=== PATIENT | female | born 1935 | race Caucasian/White ===

== ENCOUNTER 2017-06-03 07:54 | Day surgery (SDC) | payer MEDICARE, OTHER ==
[~2017-06-03] VITALS: Ht 157.5 cm; Wt 69.0 kg
[~2017-06-03 07:54] MED LIST: ASPI81CH; Azor 5-20 MG T1 EACH; CHOL10002; COSOPT PF EYE1 EACH; Coq-10100 MG; DHEA; GLUC500; Hair, Skin & N1 EACH; LEVSOD88; LUMIGAN2.5 ML; ROSU5; YUVAFEM10 MCG
== END 2017-06-03 10:05 | disposition home or self-care (01) ==
LOC: ORSCSDS 07:54
PROVIDERS: Surgery
PROC: 0DBP8ZX Excision of Rectum, Via Natural or Artificial Opening Endoscopic, Diagnostic (ICD-10-PCS; principal; 2017-06-03 09:15)
DX: Z12.11 Encounter for screening for malignant neoplasm of colon (principal); D12.8 Benign neoplasm of rectum; K57.30 Diverticulosis of large intestine without perforation or abscess without bleeding; Z86.010 Personal history of colon polyps; Z80.0 Family history of malignant neoplasm of digestive organs; I10 Essential (primary) hypertension; E03.9 Hypothyroidism, unspecified; E78.5 Hyperlipidemia, unspecified; B15.9 Hepatitis A without hepatic coma; Z79.82 Long term (current) use of aspirin; Z79.899 Other long term (current) drug therapy
CPT/HCPCS: 88305; J2405

== ENCOUNTER 2018-04-08 09:41 | Inpatient (IN) | payer MEDICARE, OTHER ==
[~2018-04-08] VITALS: Ht 157.5 cm; Wt 62.4 kg
[~2018-04-08 09:41] MED LIST changes: -Azor 5-20 MG T1 EACH; +Azor 5-20 MG T1 EACH PO; -CHOL10002; +CHOL10002 PO; -Coq-10100 MG; +Coq-10100 MG PO; -DHEA; +DHEA PO; -LEVSOD88; +LEVSOD88 PO; -ROSU5; +ROSU5 PO
[2018-04-08 10:41] LABS: BASOPHILS ABSOLUTE AUTO 0.01 K/mm3 (0.00-0.23); BASOPHILS PERCENT AUTO 0 % (0-2); EOSINOPHILS ABSOLUTE AUTO 0.02 K/mm3 (0.00-0.68); EOSINOPHILS PERCENT AUTO 0 % (0-6); IMMATURE GRAN ABSOLUTE AUTO 0.01 K/mm3 (0.00-0.10); IMMATURE GRAN PERCENT AUTO 0 % (0-1); LYMPHOCYTES ABSOLUTE AUTO 2.06 K/mm3 (0.84-5.20); LYMPHOCYTES PERCENT AUTO 29 % (21-46); MONOCYTES PERCENT AUTO 10 % (4-13); Mean Corpuscular HGB Conc 29.8 g/dL (31.5-36.5); Mean Corpuscular Volume 77 fL (80-100); Mean Platelet Volume 9.3 fL (9.1-12.4); NEUTROPHILS ABSOLUTE AUTO 4.43 K/mm3 (1.96-9.15); NEUTROPHILS PERCENT AUTO 61 % (41-73); Platelet Count 414 K/mm3 (150-400); RDW Coefficient Variation 19.9 % (11.7-14.2); RDW Standard Deviation 55.4 fL (35.1-46.3); Red Blood Cell Count 2.09 M/mm3 (3.80-5.20); White Blood Cell Count 7.23 K/mm3 (4.00-11.30)
[2018-04-08 10:42] LABS: Hematocrit 16.1 % (33.0-51.0)
[2018-04-08 10:52] LABS: Alanine Aminotransfer (ALT/SGP 20 U/L (12-78); Albumin, Blood 3.4 g/dL (3.4-5.0); Albumin/Globulin Ratio 0.9 (0.8-1.8); Alk Phos 36 U/L (50-136); Anion Gap 7 mmol/L (6-16); Aspartate Aminotrans (AST/SGOT 15 U/L (12-37); Bilirubin, Total 0.2 mg/dL (0.1-1.0); Blood Urea Nitrogen 27 mg/dL (8-24); Bun/Creatinine Ratio 34.3 (12.0-20.0); CO2, Blood 26 mmol/L (21-32); Calcium, Blood 8.2 mg/dL (8.5-10.1); Chloride, Blood 105 mmol/L (98-108); Creatinine, Blood 0.79 mg/dL (0.40-1.00); Globulin, Blood 3.9 g/dL (2.2-4.0); Glomerular Filtration Rate >60 (60-); Glucose, Blood 91 mg/dL (70-99); Potassium, Blood 3.5 mmol/L (3.5-5.5); Sodium, Blood 138 mmol/L (136-145); Total Protein, Blood 7.3 g/dL (6.4-8.2)
[2018-04-08 10:57] LABS: Hemoglobin 4.8 g/dL (11.5-16.0)
[2018-04-08] MEDS ORDERED: DORZOPSO LEFTEYE (11:02)
[2018-04-08 11:06] LABS: Troponin I <0.015 ng/mL (0.000-0.040)
[2018-04-08 13:07] LABS: Source, Urine Clean Catch
[2018-04-08 13:15] LABS: Appearance, Urine Turbid (Clear); Bilirubin, Urine Neg (Neg); Blood, Urine 1+ (Neg); Color, Urine Yellow (P-Yellow); Glucose Qualitative, Urine Neg (Neg); Ketones, Urine 1+ (Neg); Leukocyte Esterase, Urine 1+ (Neg); Nitrite, Urine Neg (Neg); Protein, Urine Neg (Neg); Specific Gravity, Urine 1.015 (1.003-1.022); Urobilinogen, Urine NORM (Normal)
[2018-04-08 13:57] LABS: Red Blood Cells, Urine Not Seen /hpf (0-2); White Blood Cells, Urine 0-2 /hpf (0-5)
[2018-04-08 13:58] LABS: Bacteria Rare /hpf; Squamous Epithelial Cells Rare /hpf (Few)
--- NOTE | 2018-04-08 19:32 | NUR ---
Shift Summary Assumed care of pt at approx 1445. Pt arrived to unit from ED via gurney. VSS. In no apparent sign of distress. Pt has received 1 of 2 units of blood and tolerated well w/out s/sx of transfusion reaction or fluid overload at this time. Pt repositons self. Dr. Murry at bedside this afternoon and plan is to scope pt in AM at approx 0900 so pt is NPO per Dr. Murry. Pt on RA. Lungs clear. No bloody stools since arriving ot the PCU. Pt currently resting in bed with call light within reach. Denies any further questions, complaints or requests at this time. Report given to sia HURD.
[2018-04-08] MEDS ORDERED: CRINONE1.125 GM (19:56)
[2018-04-08] MEDS ORDERED: [UNRECOGNIZED DRUG - MIXTURE] (19:59)
[2018-04-08] MEDS ORDERED: [UNRECOGNIZED DRUG - OTHER] (20:04)
--- NOTE | 2018-04-08 22:09 | NUR ---
ASSUMED CARE OF PATIENT AT APPROXIMATELY 1910 FROM STEFANIA Meadows RN. PATIENT ALERT AND ORIENTED X4. PATIENT REPORTS SHE FEELS BETTER COMPARED TO WHEN SHE WAS ADMITTED; REPORTS SHE DOESNT FEEL WEAK WHEN SHE ABMULATES. SBA TO BATHROOM. ONE UNIT OF BLOOD FINISHING INFUSING SHORTLY AFT SHIFT CHANGE. 2ND UNIT OF BLOOD STARTED; THIS RN STAYING IN ROOM FOR FIRST 15 MINUTES OF TRANSFUSION; NO ADVERSE S/S NOTED. NSR ON TELE; OXYGEN SATURATION ABOVE 90% ON ROOM AIR. PATIENT DENIES PAIN, NUMBNESS, TINGLING, DIZZINESS OR LIGHTHEADEDNESS. NO BM. PATIENT REPORTED NAUSEA; MEDICATED PER EMAR; NO FURTHER COMPLAINTS. PATIENT REPORTS RESTLESS HIPS; REPORTS CHRONIC; REPOSISTION; PATIENT REPORTS HELPED. PATIENT WAS UP TO CHAIR FOR ABOUT THIRTY MINUTES. PATIENT NPO PER DAYSHIFT RN FOR SCOPE IN AM. PATIENT AWARE. IVF INFUSING PER ORDERS. PATIENT CURRENTLY SLEEPING IN BED; CALL LIGHT IN REACH; BED IN LOWEST POSISTION; BED ALARM ON; WILL CONTINUE TO MONITOR AND ASSESS UNTIL END OF SHIFT.
[2018-04-09 01:20] LABS: Hematocrit 19.4 % (33.0-51.0); Hemoglobin 6.3 g/dL (11.5-16.0)
--- NOTE | 2018-04-09 01:55 | NUR ---
CALLED DR. MOISE TO REPORT HEMOGLOBIN OF 6.3; ORDERS RECIEVED.
--- NOTE | 2018-04-09 02:56 | NUR ---
THIS RN STAYED IN THE ROOM WITH PATIENT FOR FIRST 15 MINUTES OF BLOOD TRANSFUSION; NO S/S OF ADVERSE REACTION NOTED. PATIENT CURRENTLY SLEEPING; WILL CONTINUE TO MONITOR AND ASSESS UNTIL END OF SHIFT.
[2018-04-09 06:35] LABS: Hematocrit 25.5 % (33.0-51.0); Hemoglobin 8.4 g/dL (11.5-16.0)
--- NOTE | 2018-04-09 06:50 | NUR ---
SECOND UNIT OF BLOOD COMPLETED. H/H UP TO 8.4/25.5. PATIENT AMBULATED TO BATHROOM; STATES FEELS BETTER. PATIENT HAS BEEN NPO ALL SHIFT; SCD'S APPLIED LAST NIGHT. NO BM. NO ACUTE CHANGES TO REPORT. WILL CONTINUE TO MONITOR AND ASSESS UNTIL END OF SHIFT. PATIENT SLEPT ABOUT SIX HOURS LAST NIGHT.
--- NOTE | 2018-04-09 10:08 | NUR ---
History, Chart, Medications and Allergies reviewed before start of procedure. Lungs clear T/O to Auscultation. Patient confirms NPO status and agrees with scheduled surgery. Pre-Op teaching done. Pt verbalizes understanding.
--- NOTE | 2018-04-09 10:27 | NUR ---
04/09/18 1027 JanineBradlyJayda PATIENT DETERMINED TO BE ASA APPROPRIATE FOR PROPOFOL SEDATION PRIOR TO START OF PROCEDURE BY DR. MONTOYA. 3-LEAD EKG REVIEWED WITH PHYSICIAN PRIOR TO START OF PROCEDURE. PATIENT CONFIRMS NPO STATUS AND AGREES WITH SCHEDULED PROCEDURE. History, Chart, Medications and Allergies reviewed before start of procedure. MONITOR INTACT WITH CONTINUOUS PULSE OXIMETRY AND INTERMITTENT BP. O2 VIA N/C INTACT THROUGHOUT SEDATION/PROCEDURE. O2 VIA N/C INTACT THROUGHOUT SEDATION/PROCEDURE, VIA POM MASK AT 10 L. Bite Block Placed IMMEDIATEL PRESEDATION.
[2018-04-09 13:34] LABS: Hematocrit 22.4 % (33.0-51.0); Hemoglobin 7.3 g/dL (11.5-16.0)
[2018-04-09 18:27] LABS: Hematocrit 21.8 % (33.0-51.0); Hemoglobin 7.1 g/dL (11.5-16.0)
--- NOTE | 2018-04-09 19:09 | NUR ---
Shift Summary Pt has been stable today. Pt had EGD this AM at approx 1000 - results no findings of bleeding. Denies any pain t/o the shift. No BM this shift. Pt walked halls today post procedure and tolerated activity well. H&H decreased this evening. Dr. Murry by this evening and plans to repeat EGD in AM if H&H continues to drop. Called Dr. Christian with most recent H&H and received order to transfuse 1 unit PRBC if hemoglobin <7. Pt allowed clear liquid diet per Dr. Murry until 2400 - then NPO. Pt currently resting in bed with call light within reach. Denies any further questions, complaints or requests at this time. Report given to sia HURD.
--- NOTE | 2018-04-09 22:38 | NUR ---
ASSUMED CARE OF PATIENT AT APPROXIMATELY 1905 FROM STEFANIA Meadows RN. PATIENT ALERT AND ORIENTED X4. PATIENT REPORTS SHE CONTINUES TO FEEL BETTER EACH DAY. SBA TO BATHROOM; STEADY ON FEET. NSR ON TELE; OXYGEN SATURATION ABOVE 90% ON ROOM AIR. PATIENT DENIES PAIN, NUMBNESS, TINGLING, DIZZINESS, NAUSEA AND LIGHTHEADEDNESS. PATIENT HAD ONE BM AT SHIFT CHANGE; BLACK FORMED/LOOSE. CLEAR LIQUID DIET TOLERATED WELL; NPO AT MIDNIGHT FOR POSS SCOPE IN AM; SCOPE DONE TODAY. 2X PIV S/L. 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 PATIENT CURRENTLY SLEEPING IN BED; CALL LIGHT IN REACH; BED IN LOWEST POSISTION; BED ALARM ON; WILL CONTINUE TO MONITOR AND ASSESS UNTIL END OF SHIFT.
[2018-04-10 00:09] LABS: Hematocrit 22.5 % (33.0-51.0); Hemoglobin 7.2 g/dL (11.5-16.0)
[2018-04-10 06:07] LABS: Hematocrit 21.7 % (33.0-51.0); Hemoglobin 7.1 g/dL (11.5-16.0)
--- NOTE | 2018-04-10 06:30 | NUR ---
PATIENT'S HEMOGLOBIN ABOVE 7 ALL NIGHT. PATIENT HAS BEEN NPO SINCE MIDNIGHT; ONLY HAD ONE BM LAST NIGHT. VSS. WILL CONTINUE TO MONITOR AND ASSESS UNTIL END OF SHIFT.
--- NOTE | 2018-04-10 08:59 | NUR ---
BROUGHT TO STEP FOR ENDO PROCEDURE FROM PCU 11. RECIEVED REPORT FROM RN. MARY ALICE ADMISSION TO UNIT STARTED
--- NOTE | 2018-04-10 09:30 | NUR ---
04/10/18 0929 Stef Romo 0908 PATIENT DETERMINED TO BE ASA APPROPRIATE FOR PROPOFOL SEDATION PRIOR TO START OF PROCEDURE BY .3-LEAD EKG REVIEWED WITH PHYSICIAN PRIOR TO START OF PROCEDURE.PATIENT CONFIRMS NPO STATUS AND AGREES WITH SCHEDULED PROCEDURE.History, Chart, Medications and Allergies reviewed before start of procedure.MONITOR INTACT WITH CONTINUOUS PULSE OXIMETRY AND INTERMITTENT BP.O2 VIA N/C INTACT THROUGHOUT SEDATION/PROCEDURE.Bite Block Placed
[2018-04-10 11:06] LABS: Hematocrit 23.3 % (33.0-51.0); Hemoglobin 7.6 g/dL (11.5-16.0)
[2018-04-10 16:58] LABS: Hematocrit 26.1 % (33.0-51.0); Hemoglobin 8.5 g/dL (11.5-16.0)
[2018-04-10 17:21] LABS: Percent Saturation 15.7 % (15.0-50.0)
--- NOTE | 2018-04-10 21:04 | NUR ---
ASSUMED CARE OF PATIENT AT APPROXIMATELY 1910 FROM MARISOL Delgadillo RN. PATIENT ALERT AND ORIENTED X4. PATIENT REPORTS SHE AGREED TO STAY ONE MORE NIGHT; READY TO GO HOME IN AM. INDEPENDENT IN ROOM; STEADY ON FEET. NSR ON TELE; OXYGEN SATURATION ABOVE 90% ON ROOM AIR. PATIENT DENIES PAIN, NUMBNESS, TINGLING, DIZZINESS, NAUSEA AND LIGHTHEADEDNESS. REPORTED THAT PATIENT HAD ONE BM DURING DAYSHIFT BLACK FORMED. SMALL BITE SIZED DIET TOLERATED WELL; 2ND SCOPE DONE TODAY AND ONE UNIT RBC TRANSFUSED REPORTED. 2X PIV S/L. PATIENT WILL HAVE H/H TONIGHT. PATIENT CURRENTLY SLEEPING IN BED; CALL LIGHT IN REACH; BED IN LOWEST POSISTION; WILL CONTINUE TO MONITOR AND ASSESS UNTIL END OF SHIFT.
[2018-04-10 22:56] LABS: Hematocrit 27.2 % (33.0-51.0); Hemoglobin 8.7 g/dL (11.5-16.0)
[2018-04-11 05:22] LABS: Hematocrit 26.3 % (33.0-51.0); Hemoglobin 8.5 g/dL (11.5-16.0)
--- NOTE | 2018-04-11 06:15 | NUR ---
PATIENT SLEPT ABOUT NINE HOURS LAST NIGHT. AMBULATED INDEPENDENTLY TO THE BATHROOM. VSS. HEMOGLOBIN 8.5 AT LAST DRAW. WILL CONTINUE TO MONITOR AND ASSESS UNTIL END OF SHIFT.
--- NOTE | 2018-04-11 09:10 | NUR ---
The pt tells me that Dr. Mares was here this morning, and wants to wait until 2 pm to recheck labs before discharging the pt. No new orders, no lab orders yet. Call to Dr. Mares's office to ask if labs were going to be ordered. The avp states she will remind the doctor about the lab work order. I did not see Dr. Mares this morning, nor did the child nutrition manager at the desk.
[2018-04-11 12:04] LABS: BASOPHILS ABSOLUTE AUTO 0.03 K/mm3 (0.00-0.23); BASOPHILS PERCENT AUTO 1 % (0-2); EOSINOPHILS PERCENT AUTO 2 % (0-6); Hematocrit 26.8 % (33.0-51.0); Hemoglobin 8.5 g/dL (11.5-16.0); IMMATURE GRAN ABSOLUTE AUTO 0.01 K/mm3 (0.00-0.10); IMMATURE GRAN PERCENT AUTO 0 % (0-1); LYMPHOCYTES ABSOLUTE AUTO 1.37 K/mm3 (0.84-5.20); LYMPHOCYTES PERCENT AUTO 27 % (21-46); MONOCYTES PERCENT AUTO 12 % (4-13); Mean Corpuscular HGB 26.8 pg (26.0-34.0); Mean Corpuscular HGB Conc 31.7 g/dL (31.5-36.5); Mean Platelet Volume 9.5 fL (9.1-12.4); NEUTROPHILS ABSOLUTE AUTO 3.03 K/mm3 (1.96-9.15); NEUTROPHILS PERCENT AUTO 59 % (41-73); Platelet Count 373 K/mm3 (150-400); RDW Coefficient Variation 17.8 % (11.7-14.2); Red Blood Cell Count 3.17 M/mm3 (3.80-5.20); White Blood Cell Count 5.14 K/mm3 (4.00-11.30)
[2018-04-11 12:13] LABS: Mean Corpuscular Volume 85 fL (80-100)
[2018-04-11 14:09] LABS: Hematocrit 25.4 % (33.0-51.0); Hemoglobin 8.3 g/dL (11.5-16.0)
--- NOTE | 2018-04-11 14:17 | NUR ---
Call to Dr. Mares's office regarding results of Hgb and Hct; pt is inquiring about discharge as the doctor told her today that it would be possible if stable.
[2018-04-11] MEDS ORDERED: Protonix40 MG PO (16:00)
[2018-04-11] MEDS ORDERED: ACET325 PO (16:01)
--- NOTE | 2018-04-11 17:09 | NUR ---
the pt was escorted out in a wheelchair by the PCT, with her accompanying her.
== END 2018-04-11 17:19 | disposition home or self-care (01) | DRG 378 ==
LOC: ER 09:41 → PCU 09:42 → ER 14:50 → PCU 14:50
PROVIDERS: Emergency Medicine; Family Medicine; Internal Medicine Gastroenterology; ADMIT Internal Medicine
PROC: 0D5A8ZZ Destruction of Jejunum, Via Natural or Artificial Opening Endoscopic (ICD-10-PCS; principal; 2018-04-10 10:15)
PROC: 30233N1 Transfusion of Nonautologous Red Blood Cells into Peripheral Vein, Percutaneous Approach (ICD-10-PCS; 2018-04-10 10:15)
DX: K28.4 Chronic or unspecified gastrojejunal ulcer with hemorrhage (principal); D62 Acute posthemorrhagic anemia; K92.1 Melena; D50.0 Iron deficiency anemia secondary to blood loss (chronic); I10 Essential (primary) hypertension; E03.9 Hypothyroidism, unspecified; E78.5 Hyperlipidemia, unspecified; K44.9 Diaphragmatic hernia without obstruction or gangrene
CPT/HCPCS: 36415; 36430; 80053; 81001; 82272; 82607; 82728; 82746; 83540; 83550; 84443; 84484; 85014; 85018; 85025; 86850; 86900; 86901; 86923; 93005; 93010; 96365; 96366; 96375; 96376; 99285-25; C9113; G0378; J2405; J7030; J7120; P9016

== ENCOUNTER → 2018-05-04 | Outpatient (CLI) | payer MEDICARE, OTHER ==
[~2018-05-04] MED LIST changes: +ACET325 PO; +CRINONE1.125 GM; +DORZOPSO LEFTEYE; +Protonix40 MG PO; +[UNRECOGNIZED DRUG - MIXTURE]; +[UNRECOGNIZED DRUG - OTHER]
== END | disposition home or self-care (01) ==
LOC: LAB 17:32 → LAB SHORT 17:32
PROVIDERS: Obstetrics & Gynecology Gynecology
DX: Z12.72 Encounter for screening for malignant neoplasm of vagina (principal)
CPT/HCPCS: 87624; G0123

== ENCOUNTER → 2023-02-18 | Outpatient (CLI) | payer MEDICARE, OTHER ==
[~2023-02-18] MED LIST changes: +AMLODIPINE-OLM1 EAC5 PO; +ASCO500 PO; +COENZYME Q-1030 MG PO; +DHEA 10 MG TAB1 EACH PO; +ERGO400 PO; +FAMO10; +MULVITA PO; +SULTRIDS PO
== END | disposition home or self-care (01) ==
LOC: LAB SHORT 15:24 → PLD 15:24
DX: L82.1 Other seborrheic keratosis (principal)
CPT/HCPCS: 88305

== ENCOUNTER 2023-04-17 01:32 | Emergency (ER) | payer MEDICARE, OTHER ==
[~2023-04-17] VITALS: Ht 162.6 cm; Wt 65.8 kg
[2023-04-17 01:58] VITALS: BP 148/81
[2023-04-17 03:24] LABS: Influenza A, PCR NEGATIVE (NEGATIVE); Influenza B, PCR NEGATIVE (NEGATIVE); SARS-Cov-2 (COVID-19) PCR, MMC NEGATIVE (NEGATIVE)
[2023-04-17 03:27] LABS: Resp Syncytial Virus, PCR POSITIVE (NEGATIVE)
== END 2023-04-17 03:57 | disposition home or self-care (01) ==
LOC: ER 01:32
PROVIDERS: Emergency Medicine
DX: J21.0 Acute bronchiolitis due to respiratory syncytial virus (principal); Z88.5 Allergy status to narcotic agent; Z88.1 Allergy status to other antibiotic agents; Z91.048 Other nonmedicinal substance allergy status; Z79.899 Other long term (current) drug therapy
CPT/HCPCS: 0241U; 71046; 99283-25

== ENCOUNTER 2023-07-27 12:22 | Emergency (ER) | payer OTHER, MEDICARE ==
[~2023-07-27] VITALS: Ht 154.9 cm; Wt 60.3 kg
[2023-07-27 14:04] VITALS: BP 151/83
== END 2023-07-27 14:05 | disposition home or self-care (01) ==
LOC: ER 12:22
DX: S05.12XA Contusion of eyeball and orbital tissues, left eye, initial encounter (principal); E78.5 Hyperlipidemia, unspecified; W01.0XXA Fall on same level from slipping, tripping and stumbling without subsequent striking against object, initial encounter; Z91.09 Other allergy status, other than to drugs and biological substances; Z88.5 Allergy status to narcotic agent; Z88.8 Allergy status to other drugs, medicaments and biological substances; Z79.899 Other long term (current) drug therapy
CPT/HCPCS: 70450; 70486; 99283-25

== ENCOUNTER 2023-10-07 20:52 | Emergency (ER) | payer MEDICARE, OTHER ==
[~2023-10-07] VITALS: Ht 157.5 cm; Wt 56.7 kg
[~2023-10-07 20:52] MED LIST changes: +AMLODIPINE-OLM1 EAC2; +Almacone Liqui355 ML PO; +CALCIUM; +DORZOLAMIDE-TIM10 ML; +Estrace Vagin42.5 GM; +ONDA4ODT MM; +PANTOPRAZOLE SO2010 PO; +SUCRALFATE114; +ZINC220
[2023-10-07] MEDS ORDERED: TIMDOROPSO BOTHEYES (21:16)
[2023-10-07] MEDS ORDERED: LUMIGAN2.5 ML BOTHEYES (21:17)
[2023-10-07] MEDS ORDERED: AMLODIPINE-OLM1 EAC5 PO (21:18)
[2023-10-07] MEDS ORDERED: Crestor40 MG PO (21:18)
[2023-10-07] MEDS ORDERED: ALENDRONATE SOD70 MG PO (21:19)
[2023-10-07] MEDS ORDERED: SUCR1 PO (21:19)
[2023-10-07] MEDS ORDERED: CLIMARA1 EACH TOP (21:19)
[2023-10-07] MEDS ORDERED: MIRALAX17 GM PO (21:20)
[2023-10-07] MEDS ORDERED: CO Q10100 MG PO (21:20)
[2023-10-07] MEDS ORDERED: OMEP20ER PO (21:20)
[2023-10-07] MEDS ORDERED: MULTIPLE VITAM1 EACH PO (21:21)
[2023-10-07] MEDS ORDERED: Vitamin D1000 UNI1 PO (21:22)
[2023-10-07] MEDS ORDERED: Calcium Acetat667 MG PO (21:23)
[2023-10-07] MEDS ORDERED: ZINC220 PO (21:23)
[2023-10-07] MEDS ORDERED: ELDERBERRY350 MG PO (21:24)
[2023-10-07] MEDS ORDERED: Acerola C500 MG PO (21:24)
[2023-10-07 21:39] LABS: BASOPHILS ABSOLUTE AUTO 0.03 K/mm3 (0.00-0.23); BASOPHILS PERCENT AUTO 0 % (0-2); EOSINOPHILS PERCENT AUTO 1 % (0-6); Hematocrit 40.7 % (33.0-51.0); Hemoglobin 14.3 g/dL (11.5-16.0); IMMATURE GRAN ABSOLUTE AUTO 0.01 K/mm3 (0.00-0.10); IMMATURE GRAN PERCENT AUTO 0 % (0-1); LYMPHOCYTES ABSOLUTE AUTO 3.43 K/mm3 (0.84-5.20); LYMPHOCYTES PERCENT AUTO 39 % (21-46); MONOCYTES ABSOLUTE AUTO 0.89 K/mm3 (0.16-1.47); MONOCYTES PERCENT AUTO 10 % (4-13); Mean Corpuscular HGB 31.1 pg (26.0-34.0); Mean Corpuscular HGB Conc 35.1 g/dL (31.5-36.5); Mean Corpuscular Volume 89 fL (80-100); Mean Platelet Volume 9.6 fL (9.1-12.4); NEUTROPHILS ABSOLUTE AUTO 4.44 K/mm3 (1.96-9.15); NEUTROPHILS PERCENT AUTO 50 % (41-73); Platelet Count 346 K/mm3 (150-400); RDW Coefficient Variation 12.9 % (11.7-14.2); RDW Standard Deviation 41.8 fL (35.1-46.3)
[2023-10-07] MEDS ORDERED: Atropine/Scopalam/Hyoscam/PB 5 ML UDC PO ONE (22:00)
[2023-10-07] MEDS ORDERED: Ondansetron HCl 2 MG / ML 2ML Vial IV ONE (22:00)
[2023-10-07] MEDS ORDERED: Lidocaine 2% Viscous Soln 15 ML UDC PO ONE (22:00)
[2023-10-07] MEDS ORDERED: Mag Hydrox/AL Hydrox/Simeth 30 ML UDC PO ONE (22:00)
[2023-10-07 22:01] LABS: Albumin, Blood 3.9 g/dL (3.4-5.0); Bilirubin, Total 0.3 mg/dL (0.1-1.0); Calcium, Blood 8.9 mg/dL (8.5-10.1); Creatinine, Blood 0.83 mg/dL (0.40-1.00); Potassium, Blood 3.9 mmol/L (3.5-5.5); Total Protein, Blood 7.9 g/dL (6.4-8.2)
[2023-10-08] MEDS ORDERED: RX Prepack 2 Tabs Ondansetron ODT 4MG UD ONE (00:15)
[2023-10-08 00:33] VITALS: BP 149/82
== END 2023-10-08 00:38 | disposition home or self-care (01) ==
LOC: ER 20:52
PROVIDERS: Student in an Organized Health Care Education/Training Program
DX: K44.9 Diaphragmatic hernia without obstruction or gangrene (principal); K29.70 Gastritis, unspecified, without bleeding; Z88.5 Allergy status to narcotic agent; Z88.1 Allergy status to other antibiotic agents; Z91.048 Other nonmedicinal substance allergy status; Z79.899 Other long term (current) drug therapy; E03.9 Hypothyroidism, unspecified
CPT/HCPCS: 74177; 80053; 83690; 85025; 96374-59; 99284-25; A9270; J2405; Q9967

== ENCOUNTER 2023-10-11 11:07 | Day surgery (SDC) | payer MEDICARE, OTHER ==
[~2023-10-11] VITALS: Ht 154.9 cm; Wt 56.9 kg
[~2023-10-11 11:07] MED LIST changes: +ALENDRONATE SOD70 MG PO; +Acerola C500 MG PO; +CLIMARA1 EACH TOP; +CO Q10100 MG PO; +Calcium Acetat667 MG PO; +Crestor40 MG PO; +ELDERBERRY350 MG PO; +LUMIGAN2.5 ML BOTHEYES; +Lactated Ringer's 1,000 ML IV ONE; +MIRALAX17 GM PO; +MULTIPLE VITAM1 EACH PO; +OMEP20ER PO; +SUCR1 PO; +TIMDOROPSO BOTHEYES; +Vitamin D1000 UNI1 PO; +ZINC220 PO; +propofoL 50 ML IV ONE
[2023-10-11] MEDS ORDERED: ONDA4ODT MM (11:27)
[2023-10-11] MEDS ORDERED: Lactated Ringer's 1,000 ML IV ONE (11:44)
[2023-10-11 13:17] VITALS: BP 131/77
== END 2023-10-11 13:23 | disposition home or self-care (01) ==
LOC: ORSCSDS 11:07
PROVIDERS: Specialist
PROC: 0DB98ZX Excision of Duodenum, Via Natural or Artificial Opening Endoscopic, Diagnostic (ICD-10-PCS; principal; 2023-10-11 12:45)
PROC: 0DB68ZX Excision of Stomach, Via Natural or Artificial Opening Endoscopic, Diagnostic (ICD-10-PCS; principal; 2023-10-11 12:45)
DX: R10.13 Epigastric pain (principal); R11.0 Nausea; R63.4 Abnormal weight loss; K29.70 Gastritis, unspecified, without bleeding; K44.9 Diaphragmatic hernia without obstruction or gangrene; K57.30 Diverticulosis of large intestine without perforation or abscess without bleeding; Z79.899 Other long term (current) drug therapy
CPT/HCPCS: 88305; 88341; 88342; J2704; J7120

== ENCOUNTER 2023-10-20 09:21 | Emergency (ER) | payer MEDICARE, OTHER ==
[~2023-10-20] VITALS: Ht 154.9 cm; Wt 55.3 kg
[~2023-10-20 09:21] MED LIST changes: -Lactated Ringer's 1,000 ML IV ONE; -propofoL 50 ML IV ONE
[2023-10-20] MEDS ORDERED: Lactated Ringer's 1,000 ML IV ONE ×2 (09:30→09:35)
[2023-10-20 10:02] LABS: BASOPHILS ABSOLUTE AUTO 0.03 K/mm3 (0.00-0.23); BASOPHILS PERCENT AUTO 0 % (0-2); EOSINOPHILS ABSOLUTE AUTO 0.02 K/mm3 (0.00-0.68); EOSINOPHILS PERCENT AUTO 0 % (0-6); Hematocrit 43.4 % (33.0-51.0); Hemoglobin 15.1 g/dL (11.5-16.0); IMMATURE GRAN ABSOLUTE AUTO 0.01 K/mm3 (0.00-0.10); IMMATURE GRAN PERCENT AUTO 0 % (0-1); LYMPHOCYTES ABSOLUTE AUTO 2.43 K/mm3 (0.84-5.20); LYMPHOCYTES PERCENT AUTO 34 % (21-46); MONOCYTES ABSOLUTE AUTO 0.67 K/mm3 (0.16-1.47); MONOCYTES PERCENT AUTO 9 % (4-13); Mean Corpuscular HGB 31.5 pg (26.0-34.0); Mean Corpuscular HGB Conc 34.8 g/dL (31.5-36.5); Mean Corpuscular Volume 91 fL (80-100); Mean Platelet Volume 9.3 fL (9.1-12.4); NEUTROPHILS ABSOLUTE AUTO 4.01 K/mm3 (1.96-9.15); NEUTROPHILS PERCENT AUTO 56 % (41-73); Platelet Count 355 K/mm3 (150-400); RDW Coefficient Variation 13.1 % (11.7-14.2); RDW Standard Deviation 43.5 fL (35.1-46.3); Red Blood Cell Count 4.79 M/mm3 (3.80-5.20); White Blood Cell Count 7.17 K/mm3 (4.00-11.30)
[2023-10-20 10:29] LABS: Albumin, Blood 3.9 g/dL (3.4-5.0); Albumin/Globulin Ratio 0.9 (0.8-1.8); Bilirubin, Total 0.5 mg/dL (0.1-1.0); Bun/Creatinine Ratio 20.1 (12.0-20.0); Calcium, Blood 8.9 mg/dL (8.5-10.1); Creatinine, Blood 0.75 mg/dL (0.40-1.00); Globulin, Blood 4.2 g/dL (2.2-4.0); Potassium, Blood 3.9 mmol/L (3.5-5.5); Total Protein, Blood 8.1 g/dL (6.4-8.2)
[2023-10-20] MEDS ORDERED: Midazolam HCL 1 MG/ML 5MLVIAL IV ONE (11:20)
[2023-10-20] MEDS ORDERED: NS IV ONE (11:20)
[2023-10-20] MEDS ORDERED: LEVETIRACETAM IV ONE (11:20)
[2023-10-20 11:55] LABS: Source, Urine Clean Catch
[2023-10-20 12:01] LABS: Appearance, Urine Hazy (Clear); Bilirubin, Urine Neg (Neg); Blood, Urine 1+ (Neg); Color, Urine Yellow (P-Yellow); Glucose Qualitative, Urine Neg (Neg); Ketones, Urine 1+ (Neg); Leukocyte Esterase, Urine 2+ (Neg); Nitrite, Urine Neg (Neg); Protein, Urine Neg (Neg); Specific Gravity, Urine 1.015 (1.003-1.022); Urobilinogen, Urine NORM (Normal)
[2023-10-20 12:11] LABS: Amorphous Heavy (0-Heavy); Bacteria Rare /hpf; Red Blood Cells, Urine 0-2 /hpf (0-2); Squamous Epithelial Cells Few /hpf (Few)
[2023-10-20 14:30] VITALS: BP 131/68
== END 2023-10-20 14:56 | disposition home or self-care (01) ==
LOC: ER 09:21
PROVIDERS: Emergency Medicine
DX: R63.0 Anorexia (principal); R63.4 Abnormal weight loss; R11.0 Nausea; E86.0 Dehydration; I10 Essential (primary) hypertension; K21.9 Gastro-esophageal reflux disease without esophagitis; E78.00 Pure hypercholesterolemia, unspecified; Z88.5 Allergy status to narcotic agent; Z88.1 Allergy status to other antibiotic agents; Z91.048 Other nonmedicinal substance allergy status; Z88.8 Allergy status to other drugs, medicaments and biological substances; Z79.818 Long term (current) use of other agents affecting estrogen receptors and estrogen levels; Z79.899 Other long term (current) drug therapy
CPT/HCPCS: 80053; 81001; 84484; 85025; 87086; 96360; 99284-25; J7120